=== PATIENT | male | born 2000 | race Caucasian/White ===

== ENCOUNTER 2020-08-12 11:59 | Outpatient (RCR) | payer OTHER, SELFPAY ==
[2014-12-06 18:23] VITALS: BMI 20.5
== END 2020-09-16 23:59 ==
LOC: IMMUN 11:59
PROVIDERS: PCP Pediatrics; Referring Provider Family Medicine; Visit Provider Family Medicine
DX: Z23 Encounter for immunization (principal)
CPT/HCPCS: 0001A; 91300